=== PATIENT | female | born 1955 | race Caucasian/White ===

== ENCOUNTER 2019-09-21 16:20 | Emergency (ER) | payer MEDICARE, SELFPAY ==
--- NOTE | ~2019-09-21 | XR_ITS ---
XR foot RT min 3V DATE: 09/21/2019 16:54 INDICATION: Injury, right lateral foot pain TECHNIQUE: 4 views COMPARISON: None FINDINGS: There is an apparently anomalous third tarsometatarsal joint or chronic old fracture deform ity. There are prominent degenerative changes at the first through third tarsometatarsal joints. There is hallux valgus and bunion deformity and mild osteoarthritis at the first metatarsophalangeal joint. There is mild plantar calcaneal enthesopathy. No recent fracture or dislocation, periosteal reaction or bone destruction is detected. IMPRESSION: No recent fracture or dislocation detected Reviewed, dictated and finalized at location A.
--- NOTE | 2019-09-21 16:40 | PC.NURSE ---
Pt taken straight to xray from triage
[2019-09-21 16:41] VITALS: BP 102/79; PULSE 102; RESP 16; TEMP 37.3; O2SAT 99
--- NOTE | 2019-09-21 16:54 | ED.LOWEXIN ---
HPI - Extremity Injury (Lower) General Chief Complaint: Extremity Injury, Lower Stated Complaint: Right foot pain Time Seen by Provider: 09/21/19 16:58 Source: patient Mode of arrival: ambulatory Limitations: no limitations History of Present Illness HPI Narrative: Zoë Ambrocio is a 64 yo female with a PMH of hypothyroid who comes here with R foot pain after stepping out of SUV yesterday. Dates that she stepped out of her SUV yesterday and heard a pop , has right foot pain. States she took only Excedrin because she has no pain medication at home Related Data Allergies Allergy/AdvReac Type Severity Reaction Status Date / Time No Known Allergies Allergy Verified 09/21/19 16:56 Review of Systems Review of Systems: Narrative: CONSTITUTIONAL: Denies fever, chills, sweats. EYES: Denies visual changes, redness, discharge. ENT: Denies rhinorrhea, congestion, sore throat, otalgia. CARDIOVASCULAR: Denies chest pain, palpitations, edema. RESPIRATORY: Denies dyspnea, wheezing, cough GASTROINTESTINAL: Denies abdominal pain, nausea, vomiting, diarrhea. GENITOURINARY: Denies dysuria, hematuria, abnormal discharge SKIN: Denies rash or itching. NEUROLOGIC: Denies numbness, or focal weakness. PSYCHIATRIC: Denies anxiety or depression. Right foot pain, lateral side of foot PMFSH Past Medical History Medical History Hypothyroid Insomnia Right thigh pain ~2018 Surgical History Surgical History History of knee replacement procedure of left knee ~2013 Family History Family History Father Family history of chronic obstructive pulmonary disease Mother Family history of chronic obstructive pulmonary disease Social History Social History Smoking status: Never smoker Second hand tobacco smoke exposure: No Alcohol intake: never Gender identity (if verbalized by the patient): Female Comments At time of signature, I agree with nursing past medical, surgical, social and family history. There is no relevant family history pertinent to the presenting complaint. Exam Narrative: Exam Narrative: GENERAL: This is a well-nourished, well-developed patient, in mild distress. HEAD: normocephalic, atraumatic. EYES:Sclera clear/white. Vision is grossly intact. EARS: External ears normal, auditory canals clear and without drainage, TMs normal without perforation. Hearing grossly intact. NOSE: External nose normal THROAT: Mucous membranes moist, NECK: Neck supple, non-tender CARDIOVASCULAR: Regular rate and rhythm without murmurs, gallops, or rubs. RESPIRATORY: Clear to auscultation. Breath sounds equal bilaterally. No wheezes, rales, or rhonchi. GASTROINTESTINAL: Abdomen soft, non-tender, SKIN: warm, intact with no suspicious lesions or rash, good texture and turgor. NEURO: awake, alert, and oriented to person, place and time. There were no obvious focal neurologic abnormalities. Steady gait EXTREMITIES: Normal range of motion on L - R is holding food in odd position with minimal swelling- states pain with flexion, 2+ pulses, bunion medially BACK: Nontender without deformity Course Course Emergency Course: Xray of R foot - negative for fracture; coy wrap to R foot - offered post op shoe Vital Signs Vital signs: Vital Signs Temperature 99.1 F 09/21/19 16:41 Pulse Rate 102 H 09/21/19 16:41 Respiratory Rate 16 09/21/19 16:41 Blood Pressure 102/79 09/21/19 16:41 Pulse Oximetry 99 09/21/19 16:41 Temperature 99.1 F 09/21/19 16:41 Pulse Rate 102 H 09/21/19 16:41 Respiratory Rate 16 09/21/19 16:41 Blood Pressure 102/79 09/21/19 16:41 Pulse Oximetry 99 09/21/19 16:41 MDM - Extremity Injury (Lower) Differential Diagnosis Differential diagnosis: Likely fracture of toe, ankle fracture a
== END 2019-09-21 17:15 | disposition home or self-care (01) ==
PROVIDERS: Emergency Provider Nurse Practitioner
DX: S93.601A Unspecified sprain of right foot, initial encounter (principal); X58.XXXA Exposure to other specified factors, initial encounter
CPT/HCPCS: 73630; 99213; G0463

== ENCOUNTER 2019-10-23 17:17 | Outpatient (CLI) | payer MEDICARE, SELFPAY ==
--- NOTE | ~2019-10-23 | MM_ITS ---
EXAMINATION: MM scrn ashok implant BI w pedrito HISTORY: Screening mammogram TECHNIQUE: Craniocaudal and mediolateral oblique 3-D tomosynthesis images with implant displacement a nd synthetic 2-D images were generated. Craniocaudal and mediolateral oblique views of the breasts wi thout implant displacement were obtained using full field digital mammography. CAD analysis was submi tted and interpreted. COMPARISON: 03/30/2011, 02/25/2011, 01/15/2010 BREAST PARENCHYMAL COMPOSITION: The breasts are almost entirely fatty. FINDINGS: There is no evidence of suspicious mass, calcification, or architectural distortion to sugg est malignancy in either breast. There has been no suspicious interval change. IMPRESSION: 1. No mammographic evidence of malignancy. 2. Recommend routine screening mammography in one year. BI-RADS Category 1: Negative Reviewed, dictated and finalized at location A.
== END 2019-10-23 17:18 | disposition home or self-care (01) ==
PROVIDERS: PCP Family Medicine; Visit Provider Surgery Plastic and Reconstructive Surgery
DX: Z12.31 Encounter for screening mammogram for malignant neoplasm of breast (principal)
CPT/HCPCS: 77063; 77067

== ENCOUNTER 2019-11-25 00:01 | Outpatient (CLI) | payer MEDICARE, SELFPAY ==
[2019-11-25 19:45] LABS: SARS-CoV-2 RNA PCR Negative
== END 2019-11-25 00:02 | disposition home or self-care (01) ==
LOC: ANHCOVIDDT 00:01
PROVIDERS: PCP Family Medicine; Visit Provider Surgery Plastic and Reconstructive Surgery
DX: Z01.818 Encounter for other preprocedural examination (principal); Z11.59 Encounter for screening for other viral diseases; Z41.1 Encounter for cosmetic surgery
CPT/HCPCS: 87635; C9803; U0003

== ENCOUNTER 2019-11-27 01:35 | Day surgery (SDC) | payer OTHER, SELFPAY ==
[2019-11-20 13:58] VITALS: BMI 23.6
--- NOTE | 2019-11-26 13:22 | WPDANESEPPF ---
Anes - Initial Pre Proc Eval Procedure: Operation Date: 11/27/19 07:30 Proposed Procedures p Bilateral Breast Implant Exchange, - Bernardo Quiros MD s Bilateral Breast Mastopexy Revision with Galaflex - Bernardo Quiros MD Date/Time: 11/26/19 13:22 Surgeon: Bernardo Quiros MD Pre Op Diagnosis: hx of breast augmentation Patient Data Age: 64 Gender: F Height: 5 ft 1 in Weight: 56.7 kg Allergies Allergy/AdvReac Type Severity Reaction Status Date / Time No Known Allergies Allergy Verified 12/10/19 17:05 Home Medications Medication Instructions Recorded Confirmed Type levothyroxine 112 mcg tablet 112 mcg PO DAILY #90 tablet 12/03/19 12/03/19 Rx cephalexin 500 mg capsule 500 mg PO Q8H #21 cap 12/10/19 12/10/19 Rx hydrocodone 5 mg-acetaminophen 325 1 tablet PO Q6H PRN #15 tablet 12/10/19 12/10/19 Rx mg tablet ibuprofen 600 mg tablet 600 mg PO TID #15 tablet 12/10/19 12/10/19 Rx Patient hx anesthesia problems: none Family hx anesthesia problems: none PMFSH Social History Social History Smoking status: Never smoker Second hand tobacco smoke exposure: No Alcohol intake: never Gender identity (if verbalized by the patient): Female Anes - Eval Final PreProcedure Day of Procedure 11/26/19 13:22 Patient weight: normal Heart: regular rate and rhythm Lungs: clear to auscultation Airway: Mallampati scale class II Neurological: alert and oriented Last oral intake: >/= 8 hours ASA classification: II Emergent: no Anesthetic plan: proceed Anesthesia type and monitoring: general LMA and standard monitoring Informed Consent: The patient's anesthetic plan and its attendant risks and benefits were discussed with the patient/family/POA. Questions were solicited and answers provided to the satisfaction of the patient/family/POA.
[2019-11-27] VITALS (10 sets, daily range): BP systolic 86–130; BP diastolic 49–78; PULSE 59–105; RESP 12–25; TEMP 36.3–36.8; O2SAT 92–97
[2019-11-27 06:45] LABS: Urine Cotinine NEGATIVE
[2019-11-27] MEDS: LACTATED RINGERS 1,000 ML 30 ML IV CONT ×2 (06:45→11:00)
--- NOTE | 2019-11-27 07:02 | WPDHPUPDATE1 ---
History and Physical Update Update Date/Time: 11/27/19 07:02 History and Physical has been reviewed, including an updated exam of the patient. There are NO changes in the patient's condition. Risks, benefits, and alternatives have been discussed and questions answered. Patient agrees to proceed with procedure.
--- NOTE | 2019-11-27 07:03 | PM.PROC ---
Procedure Note - Detailed Date of procedure: 11/27/19 Pre-op diagnosis: hx of breast augmentation Post-op diagnosis: same Procedure performed: implant exchange with mastopexy revision and Galaflex placement Description of procedure: She is here today for implant exchange with mastopexy revision and Galaflex placement. Previously and again today the risks, benefits, alternatives were discussed in extensive detail. I wanted her to be very realistic about the risks involved as well as expectations. We discussed aftercare and what to monitor for. Made sure answered all of her questions to her satisfaction today and consent was obtained. Marked in the preoperative holding area with their verification. The patient was taken to the operating room placed supine on the operating table. Anesthesia was provided by anesthesiology. A surgical time-out was taken. We cleansed the skin and 1% lidocaine and 0.25% Marcaine with epinephrine was used anesthetize as a field block. She was prepped and draped in a standard sterile fashion. Tegaderm nipple Martin were placed. A 15 blade used to make an incision along the vertical incision. Dissection was continued until the chest wall as identified. the implant capsule was identified and incised. I removed bilateral breast implants. The right implant was Style 20-400cc. The left implant was Style 20-750cc I copiously irrigated with 3 L of saline solution on TUR tubing. I then proceeded with capsule work. On the right I released superior aspect and did a lateral popcorn capsulorrhaphy. On the left I released the superior aspect of the capsule and did inferior and lateral popcorn capsulorrhaphy. I reinforced the IMF with 2-0 Vicryl on the left side as well. I then copiously irrigated with saline solution and verified a strict hemostasis. Next the use a triple antibiotic and Betadine containing solution to irrigate the pocket. I washed my gloves with the triple antibiotic and Betadine solution. We washed the implant immediately upon opening it with this solution and only opened it when we needed it. I used implant funnel and no-touch technique. The implant was introduced into the pocket using the funnel. Having verified positioning of the implant this was closed using 2-0 Vicry. The breast was tailor tacked into place and I put her in a sitting position to verify planned mastopexy. It was clear the left breast was around 80cc smaller than the right even after adjusting left for central wedge excision. I exchanged the left implant for final implant which provided good symmetry. With exchange I again irrigated with betadine / triple antibiotic solution. I then proceeded with making the remainder of the inverted T incisions following her old incision lines. I removed just a small central keel bilaterally. I elevated medial and lateral flaps of bilateral breast. Galaflex had been prepared on the back table soaking in a Betadine triple antibiotic containing solution. This was sutured into place with a 2-0 Vicryl Making sure I secured along the IMF to help reinforce this.. I then reapproximated the pillars with 2-0 Vicryl as well as along the IMF. 3-0 Monocryl was used along the vertical as well as 3-0 strata fix on the IMF followed by running subcuticular 4-0 Monocryl and tissue glue. Fluffs and surgical bra were placed. Patient was awoke and taken to PACU without difficulty. All instrument sponge counts were correct at the end of the case. Implants: Right Natrelle Inspira SoftTouch 360cc REF [id number] Left Natrelle Inspira Softtouch 445cc REF [id number] Galaflex [id number] REF [id number] Anesthesia: GLMA Surgeon: Bernardo Quiros MD Estimated blood loss (mL): 20 Drains: No Packing: No Pathology: none sent Complications: No immediate complications Condition: stable Disposition: PACU
[2019-11-27] MEDS: MIDAZOLAM HCL 2 MG/2 ML VIAL IV PUSH (07:13)
[2019-11-27] MEDS: ceFAZolin 2 GM/D5W 50 ML 2 GM/50 ML BAG IVPB (07:23)
[2019-11-27] MEDS: BUPIVACAINE HCL 0.25% PF 30 ML VIAL INFILTRATE (07:33)
[2019-11-27] MEDS: LIDO 1%/EPINEPHRINE 1:100,000 20 ML VIAL 30 ML INFILTRATE (07:33)
--- NOTE | 2019-11-27 10:52 | SUR.OPER ---
EBL:50cc
== END 2019-11-27 13:23 | disposition home or self-care (01) ==
PROVIDERS: PCP Family Medicine; Visit Provider Surgery Plastic and Reconstructive Surgery
PROC: (CPT 19342; principal; 2019-11-27 07:30)
PROC: (CPT 19316; 2019-11-27 07:30)
DX: Z45.811 Encounter for adjustment or removal of right breast implant (principal); Z45.812 Encounter for adjustment or removal of left breast implant
CPT/HCPCS: 19328; 19340; 15777 ×2; 36415; 80307; A9270; J0131; J0690; J1100; J1580; J1741; J2250; J2405; J2704; J3010; J7120

== ENCOUNTER → 2020-12-21 17:38 | Outpatient (CLI) | payer MEDICARE, SELFPAY ==
--- NOTE | ~2020-12-21 | MR_ITS ---
EXAMINATION: MR lumbar spine wo [facility] EXAM DATE: 12/21/2020 18:31 INDICATION: M54.5 - Low back pain. TECHNIQUE: Multi-sequential, multiplanar MR images of the lumbar spine were obtained without contrast . Sagittal T1, T2, T2 fat saturation images. Axial T2 weighted images. There is no prior study for comparison. FINDINGS: There is moderate lower thoracic dextroscoliosis, lumbar levoscoliosis. Moderate to severe disc disease from T12 through L5 and at T10-11. There is 3 mm anterolisthesis L4 on L5, probably 2 to 3 mm retrolisthesis L1 on L2 and L2 on L3. Paraspinal soft tissue is unremarkable. There are no susp icious marrow signal abnormalities. The conus medullaris terminates at the T12-L1 level and has alex l signal intensity and morphology. Level by level evaluation: T12-L1: There is a moderate diffuse disc bulge. Facet arthropathy: Mild to moderate. Neural foraminal stenosis: Moderate left. Central canal stenosis: Mild. L1-L2: There is a moderate diffuse disc bulge. Facet arthropathy: Moderate. Neural foraminal stenosis: Moderate left, mild to moderate right. Central canal stenosis: Mild. L2-L3: There is a moderate diffuse disc bulge. Facet arthropathy: Moderate. Neural foraminal stenosis: Mild to moderate bilateral. Central canal stenosis: Mild to moderate. L3-L4: There is a moderate diffuse disc bulge. Facet arthropathy: Moderate right, mild left. Neural foraminal stenosis: Moderate right, mild left. Central canal stenosis: Mild to moderate. L4-L5: There is a moderate diffuse disc bulge. Facet arthropathy: Moderate to severe right, moderate left. Neural foraminal stenosis: Moderate to severe right, mild to moderate left. Central canal stenosis: Moderate, particularly right lateral recess. L5-S1: There is a moderate diffuse disc bulge. Facet arthropathy: Moderate to severe right, mild to moderate left. Neural foraminal stenosis: Moderate to severe bilateral. Central canal stenosis: Mild to moderate. IMPRESSION: 1. Lower thoracic dextroscoliosis and lumbar levoscoliosis. 2. Moderate to severe spondylosis. Reviewed, dictated and finalized at location B.
== END ==
PROVIDERS: PCP Nurse Practitioner; Visit Provider Nurse Practitioner
DX: M54.5 Low back pain (principal); M41.86 Other forms of scoliosis, lumbar region; M47.816 Spondylosis without myelopathy or radiculopathy, lumbar region
CPT/HCPCS: 72148

== ENCOUNTER 2021-02-02 18:13 | Emergency (ER) | payer MEDICARE, SELFPAY ==
[2021-02-02 18:21] VITALS: BP 109/75; PULSE 66; RESP 16; TEMP 36.4; O2SAT 99
--- NOTE | 2021-02-02 18:49 | ED.EAR ---
HPI - Ear Problem General Chief complaint: Ear Stated complaint: ear infection Time Seen by Provider: 02/02/21 18:40 Source: patient, RN notes reviewed and old records reviewed Mode of arrival: ambulatory Limitations: no limitations History of Present Illness HPI Narrative: 65 year old female with complaints of pain to her right ear which started on Sunday. Patient denies any sore throat, sinus pressure or congestion, no headache pain or cough. Patient states that her right ear is throbbing, rates her pain 10/10. She states that she has taken OTC Tylenol and Ibuprofen with no improvement in her discomfort.Patient denies any recent swimming. MD Complaint: ear pain Location: right ear Duration: constant Severity: severe Treatment prior to arrival: oral analgesic Related Data Allergies Allergy/AdvReac Type Severity Reaction Status Date / Time No Known Allergies Allergy Verified 12/06/20 15:32 Review of Systems Review of Systems: CONSTITUTIONAL: Denies fever, chills, or sweats. EYES: Denies visual changes, redness, or discharge. ENT: Denies rhinorrhea, congestion, sore throat, Positive for right ear pain. CARDIOVASCULAR: Denies chest pain, palpitations, or edema. RESPIRATORY: Denies cough or dyspnea. GASTROINTESTINAL: Denies abdominal pain, nausea, vomiting, or diarrhea. GENITOURINARY: Denies dysuria or hematuria. SKIN: Denies rash or itching. MUSCULOSKELETAL: Denies back pain, joint pain, or myalgia. NEUROLOGIC: Denies headache, numbness, or weakness. PSYCHIATRIC: Denies anxiety or depression. All systems reviewed & are unremarkable except as noted in HPI and below PMFSH Past Medical History Medical History Hypothyroid Insomnia Right thigh pain ~2018 Surgical History Surgical History History of breast augmentation History of knee replacement procedure of left knee ~2013 Family History Family History Father Family history of chronic obstructive pulmonary disease Mother Family history of chronic obstructive pulmonary disease Social History Social History Smoking status: Never smoker Second hand tobacco smoke exposure: No Alcohol intake: never Gender identity (if verbalized by the patient): Female Comments At time of signature, agree with nursing past medical, surgical, social and family history. There is no relevant family history pertinent to the presenting complaint Exam Narrative: GENERAL: Well-appearing, well-nourished, and in no acute distress. HEAD: Normocephalic, atraumatic. EYES: PERRLA and EOMI. ENT: Nares clear, no rhinorrhea or epistaxis. Mucous membranes moist.Right TM normal with canal red and excoriated, no drainage noted, has some tragal tenderness. Left ear is normal with good light reflex, throat is pink with no lesions or exudates, no tonsil swelling. NECK: Supple. No lymphadenopathy CHEST: Clear to auscultation. No respiratory distress. SaO2 99% on room air HEART: Regular rate and rhythm. No murmur heard. Normal peripheral pulses. ABDOMEN: Soft, nontender, nondistended, normal active bowel sounds. EXTREMITIES: Normal range of motion. No edema. SKIN: Warm, dry, no rash. NEURO: No focal deficits. Alert and oriented x3. Course Vital Signs Vital signs: Vital Signs Temperature 36.4 C 02/02/21 18:21 Pulse Rate 66 02/02/21 18:21 Respiratory Rate 16 02/02/21 18:21 Blood Pressure 109/75 02/02/21 18:21 Pulse Oximetry 99 02/02/21 18:21 Temperature 36.4 C 02/02/21 18:21 Pulse Rate 66 02/02/21 18:21 Respiratory Rate 16 02/02/21 18:21 Blood Pressure 109/75 02/02/21 18:21 Pulse Oximetry 99 02/02/21 18:21 Medical Decision Making Differential Diagnosis Differential Diagnosis: otitis media, otitis externa, URI Medical Records Medica
== END 2021-02-02 19:03 | disposition home or self-care (01) ==
PROVIDERS: Emergency Provider Registered Nurse
DX: H60.501 Unspecified acute noninfective otitis externa, right ear (principal); E03.9 Hypothyroidism, unspecified; Z96.652 Presence of left artificial knee joint
CPT/HCPCS: 99213; G0463